=== PATIENT | female | born 1950 | race Caucasian/White ===

== ENCOUNTER 2022-05-31 08:50 | Day surgery (SDC) | payer MEDICARE, OTHER ==
[~2022-05-31] VITALS: Ht 152.4 cm; Wt 81.8 kg
[~2022-05-31 08:50] MED LIST: SODIUM CHLORIDE 0.9% 1,000 ML IV ONE; SODIUM CHLORIDE 0.9% 1,000 ML ONE
[2022-05-31 09:19] LABS: COVID AG,FIA SOURCE NASAL SWAB
[2022-05-31] MEDS ORDERED: SPIR-37 PO (10:50)
[2022-05-31] MEDS ORDERED: METO25XL PO (10:50)
[2022-05-31] MEDS ORDERED: LEVO50 PO (10:50)
[2022-05-31] MEDS ORDERED: ALEN70TA65 PO (10:50)
[2022-05-31] MEDS ORDERED: WARF5TAB40 PO (10:50)
[2022-05-31] MEDS ORDERED: TORS20TA5 PO (10:50)
[2022-05-31] MEDS ORDERED: FLUO20CA36 PO (11:15)
[2022-05-31] MEDS ORDERED: LISI5TAB21 PO (11:15)
[2022-05-31] MEDS ORDERED: TORS100T16 PO (11:15)
[2022-05-31] MEDS ORDERED: PROPOFOL 1% 20 ML VIAL IVP ONE (12:00)
[2022-05-31] MEDS ORDERED: LIDOCAINE/PF 2% 5 ML VIAL IM ONE (12:00)
== END 2022-05-31 12:30 | disposition home or self-care (01) ==
LOC: SURGERY 08:50
PROVIDERS: ATTEND Internal Medicine Gastroenterology
DX: R19.4 Change in bowel habit (principal); K64.0 First degree hemorrhoids; K20.90 Esophagitis, unspecified without bleeding; K29.70 Gastritis, unspecified, without bleeding; I11.0 Hypertensive heart disease with heart failure; I50.9 Heart failure, unspecified; M19.90 Unspecified osteoarthritis, unspecified site; Z80.0 Family history of malignant neoplasm of digestive organs; Z79.899 Other long term (current) drug therapy; Z20.822 Contact with and (suspected) exposure to COVID-19; Z95.0 Presence of cardiac pacemaker; Z90.710 Acquired absence of both cervix and uterus; Z98.890 Other specified postprocedural states; Z95.4 Presence of other heart-valve replacement; I42.9 Cardiomyopathy, unspecified
CPT/HCPCS: 45378; 43239; 87426; 93005; C1769; J2704; J3490; J7030; C9803